=== PATIENT | male | born 2000 | race African-American/Black ===

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

== ENCOUNTER 2020-01-28 23:15 | Emergency (ER) | payer MEDICAID, OTHER ==
[~2020-01-28] VITALS: Ht 177.8 cm; Wt 95.0 kg
[2020-01-29] MEDS ORDERED: IBUPROFEN 600MG TABLET PO ONE (00:45)
[2020-01-29 01:24] VITALS: BP 143/64
== END 2020-01-29 01:37 | disposition home or self-care (01) ==
LOC: ER 23:15
DX: S60.021A Contusion of right index finger without damage to nail, initial encounter (principal); W22.8XXA Striking against or struck by other objects, initial encounter; Y93.89 Activity, other specified; Y92.89 Other specified places as the place of occurrence of the external cause; Y99.8 Other external cause status
CPT/HCPCS: 73140; 99283

== ENCOUNTER 2020-01-31 14:09 | Emergency (ER) | payer MEDICAID ==
[~2020-01-31] VITALS: Ht 175.3 cm; Wt 93.0 kg
[2020-01-31 14:25] VITALS: BP 124/71
[2020-01-31] MEDS ORDERED: IBUPROFEN 600MG TABLET PO ONE (15:15)
== END 2020-01-31 17:07 | disposition home or self-care (01) ==
LOC: ER 14:09
DX: S62.630A Displaced fracture of distal phalanx of right index finger, initial encounter for closed fracture (principal); X58.XXXA Exposure to other specified factors, initial encounter; Y93.89 Activity, other specified; Y92.89 Other specified places as the place of occurrence of the external cause; Y99.8 Other external cause status
CPT/HCPCS: 73130; 99283

== ENCOUNTER 2020-08-07 11:10 | Emergency (ER) | payer MEDICAID ==
[~2020-08-07] VITALS: Ht 180.3 cm; Wt 80.4 kg
[2020-08-07] MEDS ORDERED: IBUPROFEN 600MG TABLET PO ONE (12:30)
[2020-08-07 13:05] VITALS: BP 121/61
== END 2020-08-07 13:07 | disposition home or self-care (01) ==
LOC: ER 11:10
DX: S60.012A Contusion of left thumb without damage to nail, initial encounter (principal); W23.0XXA Caught, crushed, jammed, or pinched between moving objects, initial encounter; Y93.55 Activity, bike riding; Y92.488 Other paved roadways as the place of occurrence of the external cause
CPT/HCPCS: 73130; 99283

== ENCOUNTER 2020-08-13 11:07 | Emergency (ER) | payer MEDICAID ==
[~2020-08-13] VITALS: Ht 180.3 cm; Wt 89.0 kg
[2020-08-13 11:09] VITALS: BP 147/59
[2020-08-13] MEDS ORDERED: KETOROLAC 30MG/ML VIAL IM ONE (11:15)
== END 2020-08-13 12:15 | disposition home or self-care (01) ==
LOC: ER 11:07
DX: M25.512 Pain in left shoulder (principal); M25.511 Pain in right shoulder; R03.0 Elevated blood-pressure reading, without diagnosis of hypertension
CPT/HCPCS: 73030; 96372; 99283; J1885

== ENCOUNTER 2021-07-11 | Emergency (ER) | payer MEDICAID ==
[~2021-07-11] VITALS: Ht 180.3 cm; Wt 89.0 kg
[2021-07-11] MEDS ORDERED: ACETAMINOPHEN 325MG TABLET PO ONE (03:30)
[2021-07-11 04:27] VITALS: BP 128/82
== END 2021-07-11 04:30 | disposition home or self-care (01) ==
LOC: ER
DX: M25.561 Pain in right knee (principal)
CPT/HCPCS: 99282

== ENCOUNTER 2022-09-12 20:40 | Emergency (ER) | payer MEDICAID ==
[~2022-09-12] VITALS: Ht 180.3 cm; Wt 97.0 kg
[2022-09-13] MEDS ORDERED: IBUP-2028 MT (00:42)
[2022-09-13] MEDS ORDERED: KETOROLAC 60MG/2ML VIAL IM ONE (00:45)
[2022-09-13 01:04] VITALS: BP 124/78
== END 2022-09-13 01:06 | disposition home or self-care (01) ==
LOC: ER 20:40
DX: M25.512 Pain in left shoulder (principal)
CPT/HCPCS: 73030; 96372; 99283; J1885

== ENCOUNTER 2022-09-15 21:36 | Emergency (ER) | payer MEDICAID ==
[~2022-09-15] VITALS: Ht 180.3 cm; Wt 98.4 kg
[~2022-09-15 21:36] MED LIST: IBUP-2028 MT
[2022-09-16 05:00] LABS: CLARITY URINE CLOUDY (CLEAR); COLOR URINE YELLOW (YELLOW); PROTEIN URINE TRACE (NEGATIVE); SPECIFIC GRAVITY URINE 1.015 (1.005-1.030)
[2022-09-16 05:01] LABS: KETONES URINE TRACE (NEGATIVE); LEUKOCYTE ESTERASE URINE NEGATIVE (NEGATIVE); NITRITE URINE NEGATIVE (NEGATIVE); OCCULT BLOOD URINE NEGATIVE (NEGATIVE); UROBILINOGEN URINE 0.2 E.U./dL (0.2-1.0)
[2022-09-16 06:08] VITALS: BP 124/77
== END 2022-09-16 06:10 | disposition home or self-care (01) ==
LOC: ER 21:36
DX: N48.89 Other specified disorders of penis (principal); F12.90 Cannabis use, unspecified, uncomplicated
CPT/HCPCS: 81003; 99283

== ENCOUNTER 2025-04-03 20:12 | Emergency (ER) | payer MEDICAID, OTHER ==
[~2025-04-03] VITALS: Ht 167.6 cm; Wt 91.0 kg
[2025-04-03 20:33] VITALS: O2SAT 98
[2025-04-03] MEDS ORDERED: AMOX1TAB16 MT (20:59)
[2025-04-03] MEDS ORDERED: ACET-2708 MT (21:18)
[2025-04-03] MEDS: ACETAMINOPHEN 325MG TABLET PO ONE (21:23)
[2025-04-03] MEDS: TETANUS, DIPHTHERIA, PERTUSSIS VAC/PF 0.5ML (>10YR OLD) IM ONE (21:26)
[2025-04-03 21:29] VITALS: BP 129/62; PULSE 78; RESP 18; TEMP 36.6; O2SAT 98
== END 2025-04-03 21:30 | disposition home or self-care (01) ==
LOC: ER 20:12
DX: S60.371A Other superficial bite of right thumb, initial encounter (principal); W55.01XA Bitten by cat, initial encounter; Y93.89 Activity, other specified; Y92.89 Other specified places as the place of occurrence of the external cause; Y99.8 Other external cause status
CPT/HCPCS: 73120; 90715; 90471; 99283; Z7610

== ENCOUNTER 2025-07-21 19:25 | Emergency (ER) | payer MEDICAID ==
[~2025-07-21] VITALS: Ht 175.3 cm; Wt 80.0 kg
[~2025-07-21 19:25] MED LIST changes: +ACET-2708 MT; +AMOX1TAB16 MT
[2025-07-21 19:30] VITALS: O2SAT 100
[2025-07-21] MEDS: TETANUS, DIPHTHERIA, PERTUSSIS VAC/PF 0.5ML (>10YR OLD) IM ONE (20:01)
[2025-07-21] MEDS: LIDOCAINE HCL 1% 20ML VIAL INFIL ONE (20:02)
[2025-07-21] MEDS: ACETAMINOPHEN 500MG TABLET PO ONE (20:03)
[2025-07-21] MEDS: BACITRACIN ZINC OINT UDPKT TOP ONE (20:03)
[2025-07-21] MEDS ORDERED: BO1 TP (20:29)
[2025-07-21 20:59] VITALS: BP 119/61; PULSE 87; RESP 18; TEMP 37.1; O2SAT 100
== END 2025-07-21 21:01 | disposition home or self-care (01) ==
LOC: ER 19:25
DX: S61.212A Laceration without foreign body of right middle finger without damage to nail, initial encounter (principal); W26.8XXA Contact with other sharp object(s), not elsewhere classified, initial encounter; Y93.89 Activity, other specified; Y92.89 Other specified places as the place of occurrence of the external cause; Y99.8 Other external cause status
CPT/HCPCS: 99283; 73120; 12001; J2003

== ENCOUNTER 2025-07-27 21:01 | Emergency (ER) | payer MEDICAID ==
[~2025-07-27] VITALS: Ht 175.3 cm; Wt 78.3 kg
[~2025-07-27 21:01] MED LIST changes: +BO1 TP
[2025-07-27 21:14] VITALS: O2SAT 100
[2025-07-27] MEDS ORDERED: AMOX1TAB16 MT (21:48)
[2025-07-27 22:18] VITALS: BP 123/68; PULSE 80; RESP 18; TEMP 36.8; O2SAT 100
== END 2025-07-27 22:22 | disposition home or self-care (01) ==
LOC: ER 21:01
DX: L03.011 Cellulitis of right finger (principal); Z79.899 Other long term (current) drug therapy
CPT/HCPCS: 73130; 99283

== ENCOUNTER 2025-10-03 13:22 | Emergency (ER) | payer MEDICAID ==
[~2025-10-03] VITALS: Ht 172.7 cm; Wt 70.0 kg
[2025-10-03 13:30] VITALS: O2SAT 100
[2025-10-03 17:31] LABS: INFLUENZA TYPE A Presumptive Negative (Pres. Neg.); INFLUENZA TYPE B Presumptive Negative (Pres. Neg.)
[2025-10-03] MEDS ORDERED: AMOX1TAB16 MT (18:01)
[2025-10-03 18:09] VITALS: BP 117/63; PULSE 75; RESP 16; TEMP 37.1; O2SAT 100
== END 2025-10-03 18:10 | disposition home or self-care (01) ==
LOC: ER 13:22
DX: R05.9 Cough, unspecified (principal); Z20.822 Contact with and (suspected) exposure to COVID-19
CPT/HCPCS: 71045; 87426; 87804; 99284